=== PATIENT | male | born 1955 | race Caucasian/White ===

== ENCOUNTER → 2017-04-12 | Outpatient (CLI) | payer OTHER ==
[~2017-04-12] MED LIST: CENTRUM SILVER1 EAC5 PO
== END | disposition home or self-care (01) ==
LOC: AMB 11:41
DX: K86.2 Cyst of pancreas (principal); K57.10 Diverticulosis of small intestine without perforation or abscess without bleeding; K76.89 Other specified diseases of liver; Z86.018 Personal history of other benign neoplasm
CPT/HCPCS: C1726; J0330; J1100; J2405; J3010